=== PATIENT | female | born 1985 | race African-American/Black ===

== ENCOUNTER 2016-08-23 10:00 | Emergency (ER) | payer OTHER ==
[~2016-08-23] VITALS: Ht 170.2 cm; Wt 97.0 kg
[2016-08-23 13:57] VITALS: BP 121/78
== END 2016-08-23 14:10 | disposition home or self-care (01) ==
LOC: ER 11:39
DX: R05 Cough (principal); I10 Essential (primary) hypertension; F17.200 Nicotine dependence, unspecified, uncomplicated; Z98.890 Other specified postprocedural states
CPT/HCPCS: 71020; 81025; 99284

== ENCOUNTER 2018-02-10 08:22 | Emergency (ER) | payer OTHER ==
[~2018-02-10] VITALS: Ht 170.2 cm; Wt 86.7 kg
[2018-02-10] MEDS ORDERED: IPRATROPIUM BROMIDE (0.02%) 0.5MG/2.5ML NEB HHN STA (08:53)
[2018-02-10] MEDS ORDERED: ALBUTEROL (0.083%) 2.5MG/3ML NEB HHN STA (08:53)
[2018-02-10 11:02] VITALS: BP 129/69
== END 2018-02-10 11:05 | disposition home or self-care (01) ==
LOC: ER 08:22
DX: J06.9 Acute upper respiratory infection, unspecified (principal); R03.0 Elevated blood-pressure reading, without diagnosis of hypertension
CPT/HCPCS: 71045; 94644; 99283; J7611

== ENCOUNTER 2018-03-17 13:56 | Emergency (ER) | payer MEDICAID, OTHER ==
[~2018-03-17] VITALS: Ht 170.2 cm; Wt 87.0 kg
[2018-03-17] MEDS ORDERED: PREDNISONE 20MG TABLET PO STA (14:47)
[2018-03-17] MEDS ORDERED: IPRATROPIUM/ALBUTEROL 0.5-3(2.5)MG/3ML NEB HHN ONE (15:00)
[2018-03-17] MEDS ORDERED: AZITHROMYCIN 500 MG TABLET PO ONE (15:00)
[2018-03-17] MEDS ORDERED: MAGNESIUM/ALUMINUM HYDROXIDE/SIMETHICONE 30ML UDC PO ONE (15:00)
[2018-03-17] MEDS ORDERED: FAMOTIDINE 20MG TABLET PO ONE (15:00)
[2018-03-17 16:04] LABS: BASOPHILS % 1.3 % (0.0-2.0); HEMATOCRIT. 40.8 % (36.0-48.0); HEMOGLOBIN. 13.5 g/dL (12.0-16.0); LYMPHOCYTES % 39.9 % (20.0-50.0); MEAN CORPUSCULAR HEMOGLOBIN 27.5 pg (28.0-32.0); MEAN CORPUSCULAR VOLUME 82.8 fL (81.0-99.0); MEAN PLATELET VOLUME 8.2 fl (7.4-10.4); MONOCYTES % 5.8 % (2.0-8.0); PLATELET 288 x1000/uL (130-400); RED BLOOD CELL COUNT 4.93 mill/uL (4.2-5.4); RED CELL DISTRIBUTION WIDTH 13.5 % (11.6-14.6)
[2018-03-17 16:08] LABS: CHLORIDE 106 mEq/L (98-107)
[2018-03-17 16:13] LABS: ETHANOL BLOOD < 10 mg/dL
[2018-03-17 16:27] LABS: HCG SCREEN NEGATIVE
[2018-03-17 17:03] LABS: CLARITY URINE CLEAR (CLEAR); COLOR URINE YELLOW (YELLOW); KETONES URINE TRACE (NEGATIVE); LEUKOCYTE ESTERASE URINE NEGATIVE (NEGATIVE); NITRITE URINE NEGATIVE (NEGATIVE); OCCULT BLOOD URINE NEGATIVE (NEGATIVE); PROTEIN URINE NEGATIVE (NEGATIVE); SPECIFIC GRAVITY URINE 1.034 (1.005-1.030); UROBILINOGEN URINE 0.2 E.U./dL (0.2-1.0)
[2018-03-17 17:24] LABS: *AMPHETAMINES SCREEN URINE NEGATIVE (NEGATIVE); *BARBITURATES SCREEN URINE NEGATIVE (NEGATIVE); *BENZODIAZEPINES SCREEN URINE NEGATIVE (NEGATIVE)
[2018-03-17 17:25] LABS: *COCAINE SCREEN URINE NEGATIVE (NEGATIVE); CANNABINOID URINE SCREEN NEGATIVE (NEGATIVE); METHADONE URINE SCREEN NEGATIVE (NEGATIVE); OPIATES URINE SCREEN NEGATIVE (NEGATIVE); PHENCYCLIDINE URINE SCREEN NEGATIVE (NEGATIVE)
[2018-03-17 17:44] VITALS: BP 127/82
== END 2018-03-17 17:47 | disposition home or self-care (01) ==
LOC: ER 13:56
DX: J20.9 Acute bronchitis, unspecified (principal); K21.9 Gastro-esophageal reflux disease without esophagitis
CPT/HCPCS: 36415; 80053; 80305; 81003; 81025; 82962; 83880; 84484; 84703; 85025; 94640; 99283; G0482; J7512; J7620

== ENCOUNTER 2018-08-25 15:13 | Emergency (ER) | payer MEDICAID ==
[~2018-08-25] VITALS: Ht 170.2 cm; Wt 88.0 kg
[2018-08-25 18:15] VITALS: BP 128/86
[2018-08-25] MEDS ORDERED: IBUPROFEN 600MG TABLET PO ONE (18:15)
== END 2018-08-25 19:55 | disposition home or self-care (01) ==
LOC: ER 15:13
DX: M79.642 Pain in left hand (principal)
CPT/HCPCS: 73130; 81025; 99283

== ENCOUNTER 2018-09-14 11:44 | Emergency (ER) | payer MEDICAID ==
[~2018-09-14] VITALS: Ht 170.2 cm; Wt 87.0 kg
[2018-09-14] MEDS ORDERED: DEXAMETHASONE 10 MG/ML VIAL PO ONE (14:45)
[2018-09-14] MEDS ORDERED: ACETAMINOPHEN 325MG TABLET PO ONE (14:45)
[2018-09-14 15:40] VITALS: BP 132/82
== END 2018-09-14 15:50 | disposition home or self-care (01) ==
LOC: ER 11:44
DX: J32.9 Chronic sinusitis, unspecified (principal); J02.9 Acute pharyngitis, unspecified; J45.909 Unspecified asthma, uncomplicated
CPT/HCPCS: 87070; 87430; 99283; J1100

== ENCOUNTER 2018-12-13 21:45 | Emergency (ER) | payer MEDICAID, OTHER ==
[~2018-12-13] VITALS: Ht 170.2 cm; Wt 90.0 kg
[2018-12-13] MEDS ORDERED: KETOROLAC 30MG/ML VIAL IV ONE (23:45)
[2018-12-14 01:02] VITALS: BP 123/54
== END 2018-12-14 01:45 | disposition home or self-care (01) ==
LOC: ER 21:45
DX: M79.604 Pain in right leg (principal); F12.10 Cannabis abuse, uncomplicated; X50.1XXA Overexertion from prolonged static or awkward postures, initial encounter; Y93.02 Activity, running; Y92.89 Other specified places as the place of occurrence of the external cause; Y99.8 Other external cause status
CPT/HCPCS: 73562; 81025; 96374; 99283; J1885; L1830

== ENCOUNTER 2019-04-12 16:10 | Emergency (ER) | payer MEDICAID ==
[~2019-04-12] VITALS: Ht 170.2 cm; Wt 88.0 kg
[2019-04-12] MEDS ORDERED: SODIUM CHLORIDE 0.9% 1,000 ML IV ONE (20:00)
[2019-04-12 20:17] LABS: BASOPHILS % 0.9 % (0.0-2.0); EOSINOPHILS % 1.6 % (0.0-5.0); HEMATOCRIT. 40.8 % (36.0-48.0); HEMOGLOBIN. 13.5 g/dL (12.0-16.0); LYMPHOCYTES % 32.9 % (20.0-50.0); MEAN CORPUSCULAR HEMOGLOBIN 27.6 pg (28.0-32.0); MEAN CORPUSCULAR VOLUME 83.4 fL (81.0-99.0); MEAN PLATELET VOLUME 7.6 fl (7.4-10.4); NEUTROPHILS % 57.6 % (40.0-76.0); PLATELET 270 x1000/uL (130-400); RED BLOOD CELL COUNT 4.89 mill/uL (4.2-5.4); RED CELL DISTRIBUTION WIDTH 13.8 % (11.6-14.6)
[2019-04-12 20:24] LABS: CHLORIDE 106 mEq/L (98-107); PROTHROMBIN TIME 10.3 sec (9.6-11.0)
[2019-04-12 20:29] LABS: HCG SCREEN NEGATIVE
[2019-04-12] MEDS ORDERED: PREDNISONE 20MG TABLET PO STA (20:29)
[2019-04-12] MEDS ORDERED: ALBUTEROL (0.083%) 2.5MG/3ML NEB HHN STA (20:29)
[2019-04-12] MEDS ORDERED: IPRATROPIUM BROMIDE (0.02%) 0.5MG/2.5ML NEB HHN STA (20:29)
[2019-04-12 20:57] LABS: CLARITY URINE CLOUDY (CLEAR); COLOR URINE YELLOW (YELLOW); KETONES URINE TRACE (NEGATIVE); LEUKOCYTE ESTERASE URINE 1+ (NEGATIVE); NITRITE URINE NEGATIVE (NEGATIVE); OCCULT BLOOD URINE NEGATIVE (NEGATIVE); PROTEIN URINE NEGATIVE (NEGATIVE); SPECIFIC GRAVITY URINE 1.024 (1.005-1.030); UROBILINOGEN URINE 0.2 E.U./dL (0.2-1.0)
[2019-04-12] MEDS ORDERED: IBUPROFEN 400MG TABLET PO ONE (22:15)
[2019-04-12 23:31] VITALS: BP 132/75
== END 2019-04-12 23:32 | disposition home or self-care (01) ==
LOC: ER 16:10
DX: J20.9 Acute bronchitis, unspecified (principal); N39.0 Urinary tract infection, site not specified; R00.0 Tachycardia, unspecified; R07.9 Chest pain, unspecified; R10.32 Left lower quadrant pain; F12.10 Cannabis abuse, uncomplicated
CPT/HCPCS: 36415; 71045; 80053; 81003; 83690; 84703; 85025; 85610; 87804; 93005; 94640; 99284; J7030; J7512; J7611; Z7610

== ENCOUNTER 2019-07-12 11:49 | Emergency (ER) | payer MEDICAID ==
[~2019-07-12] VITALS: Ht 170.2 cm; Wt 90.0 kg
[2019-07-12] MEDS ORDERED: IBUPROFEN 600MG TABLET PO STA (12:43)
[2019-07-12 14:53] VITALS: BP 134/85
== END 2019-07-12 14:54 | disposition home or self-care (01) ==
LOC: ER 11:52
DX: B34.9 Viral infection, unspecified (principal); F12.10 Cannabis abuse, uncomplicated
CPT/HCPCS: 71045; 81025; 99283